=== PATIENT | female | born 1970 | race American Indian/Alaskan Native ===

== ENCOUNTER 2019-03-31 08:51 | Observation (INO) | payer MEDICAID, OTHER ==
[~2019-03-31 08:51] MED LIST: ceFAZolin/Water 2 GM/20 ML 2 GM/20 ML SYRINGE IV NR
[2019-03-31] MEDS ORDERED: fentaNYL 100 MCG/2 ML INJ IV PRN (10:09)
--- NOTE | 2019-03-31 10:13 | Anesthesia Day of Surgery ---
Anesthesia Day of Surgery - Day of Surgery Patient Examined: Yes Patient H&P Reviewed: Yes Patient is NPO: Yes
--- NOTE | 2019-03-31 10:13 | Anesthesia Consultation ---
Anesthesia Consult and Med Hx Date of service: 03/31/19 - Airway Anesthetic Teeth Evaluation: Good ROM Head & Neck: Adequate Mental/Hyoid Distance: Adequate Mallampati Class: Class II Intubation Access Assessment: Probably Good - Pulmonary Exam CTA: Yes - Cardiac Exam Cardiac Exam: RRR - Pre-Operative Health Status ASA Pre-Surgery Classification: ASA2 Proposed Anesthetic Plan: General Nerve Block: PEC - Pulmonary Hx Smoking: Yes (former smoker quit 2 yrs) Hx Respiratory Symptoms: No Hx Sleep Apnea: No (patient thinks she has ERIN but has never had sleep study) - Cardiovascular System Hx Hypertension: Yes Hx Heart Attack/AMI: No Hx Cardia Arrhythmia: No - Central Nervous System Hx Neuromuscular Disorder: No (peripheral neuropathy) CVA: No Hx Psychiatric Problems: Yes (depression) - Gastrointestinal Hx Gastroesophageal Reflux Disease: No - Endocrine Hx Renal Disease: No Hx Liver Disease: No Hx Insulin Dependent Diabetes: No Hx Non-Insulin Dependent Diabetes: No Hx Thyroid Disease: No - Other Systems Hx Cancer: Yes (Breast Ca) Hx Obesity: Yes (BMI 34) - Additional Comments Anesthesia Medical History Comments: No hx anesthetic complications.
[2019-03-31] MEDS ORDERED: BUPIVACAINE-EPINEPHRINE/PF 0.5%-1:200,000 (30 ML) VIAL INFILTRATI ONE (10:43)
[2019-03-31] MEDS ORDERED: MIDAZOLAM 2 MG/2 ML INJ IV NR (11:00)
[2019-03-31] MEDS ORDERED: GABAPENTIN 300 MG CAP PO NR (11:00)
[2019-03-31] MEDS ORDERED: CELECOXIB 200 MG CAP PO NR (11:00)
[2019-03-31] MEDS ORDERED: fentaNYL 100 MCG/2 ML INJ IV ONE (11:00)
[2019-03-31] MEDS ORDERED: MAGNESIUM OXIDE 400 MG TAB PO ONE (11:00)
[2019-03-31] MEDS ORDERED: LACTATED RINGERS 1,000 ML IV SCH ×2 (11:00→19:00)
[2019-03-31] MEDS ORDERED: ceFAZolin 1 GM VIAL ONE (12:34)
[2019-03-31] MEDS ORDERED: GENTAMICIN 40 MG/ML VIAL 2 ML ONE (12:34)
[2019-03-31] MEDS ORDERED: BACITRACIN 50,000 UNIT VIAL ONE (12:35)
[2019-03-31] MEDS ORDERED: SODIUM CHLORIDE P/F VIAL 10 ML 10 ML ONE (12:35)
[2019-03-31] MEDS ORDERED: SODIUM CHLORIDE 0.9% 1000 ML 1,000 ML ONE (12:36)
[2019-03-31] MEDS ORDERED: METHYLENE BLUE 50 MG/10 ML AMP ONE (12:36)
[2019-03-31] MEDS ORDERED: ROCURONIUM 50 MG/5 ML INJ IV ONE (13:23)
[2019-03-31] MEDS ORDERED: propofoL 200 MG/20 ML VIAL IV ONE (13:24)
[2019-03-31] MEDS ORDERED: fentaNYL 100 MCG/2 ML INJ ONE ×2 (13:24→19:41)
[2019-03-31] MEDS ORDERED: MIDAZOLAM 2 MG/2 ML INJ ONE (13:24)
[2019-03-31] MEDS ORDERED: LIDOCAINE MPF (2%) 20 MG/1 ML VIAL 5 ML ONE (13:26)
[2019-03-31] MEDS ORDERED: SUCCINYLCHOLINE CHLORIDE 200 MG/10 ML INJ MDV ONE (13:41)
[2019-03-31] MEDS ORDERED: WATER FOR IRRIG STERILE 1,500 ML BOTTLE IR ONE (14:44)
[2019-03-31] MEDS ORDERED: HYDROmorphone 1 MG/1 ML INJ ONE ×2 (15:00→20:09)
[2019-03-31] MEDS ORDERED: ceFAZolin 1 GM VIAL IV ONE (15:14)
[2019-03-31] MEDS ORDERED: BACITRACIN 50,000 UNIT VIAL IR ONE (15:15)
[2019-03-31] MEDS ORDERED: METHYLENE BLUE 50 MG/10 ML AMP IRRIGATION ONE (15:15)
[2019-03-31] MEDS ORDERED: SODIUM CHLORIDE 0.9% IRR 1,500 ML BOTTLE IR ONE (15:17)
[2019-03-31] MEDS ORDERED: LACTATED RINGERS 1,000 ML ONE (17:30)
[2019-03-31] MEDS ORDERED: METOCLOPRAMIDE 10 MG TAB PO PRN (18:36)
[2019-03-31] MEDS ORDERED: diphenhydrAMINE 25 MG CAP PO PRN (18:36)
[2019-03-31] MEDS ORDERED: ACETAMINOPHEN 325 MG TAB PO PRN (18:36)
[2019-03-31] MEDS ORDERED: ONDANSETRON 4 MG/2 ML INJ IV PRN (18:36)
--- NOTE | 2019-03-31 18:36 | Operative Report ---
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 Clay Dry Press Mixer Operator: Dr. Soto Anesthesia: Gen. Findings: Right breast clip present within right total mastectomy. 3 sentinel lymph nodes identified and negative for malignancy on frozen section of pathology. Clips present within right mastectomy. Complications: None Drains: Per plastic surgery Estimated blood loss: 120 cc Disposition: Plastic surgery proceeded with bilateral implant placement of bilateral tissue expanders Indications for operative procedure: This is a 48-year-old lady with stage II multicentric right breast cancer of the upper outer quadrant, IDCA grade 3 [id number]. She completed neoadjuvant chemotherapy and recommendations were to proceed with a bilateral mastectomy given positive BRCA1 gene mutation and right SLNB with possible ALND. She wished to proceed with a bilateral tissue expanders in conjunction with plastic surgery. She wished to proceed with the above procedure. Procedure in detail: The patient was taken to the operating room and was placed supine. Gen. anesthesia was administered. The right nipple was injected with radioisotope and 1 cc of methylene blue. Bilateral chest and axillas were prepped and draped in the normal sterile operative fashion. Timeout was performed. Typical mastectomy incision markings were made. Attention was taken toward the left breast first. First began raising of the superior flap to the level of the clavicle superiorly and posteriorly to the pectoralis muscle (medial superior flap to level of port given prior infection). Followed by raising of the medial flap to the level of the sternum and posteriorly to the pectoralis muscle. Followed by raising of the lateral flap to the level of the latissimus dorsi muscle and taken down posteriorly. Followed by raising of the inferior flap to the level of the inframammary fold taken posterior to the pectoralis muscle. The mastectomy/breast was removed from the pectoralis muscle without incident. The specimen was appropriately marked and sent to pathology. Hemostasis was obtained. Attention was taken towards the right breast. A gamma probe was inserted into the axilla to identify the sentinel lymph node location with uptake noted. Skin markings were made. A skin incision was made with a 10 blade knife and dissection taken down to the subcutaneous tissues. First began raising of the superior flap to the level of the clavicle superiorly (right port was identified and unharmed with medial mid dissection not taken to clavicle given port present) and posteriorly to the pectoralis muscle. Followed by raising of the medial flap to the level of the sternum and posteriorly to the pectoralis muscle. Followed by raising of the lateral flap to the level of the latissimus dorsi muscle and taken down posteriorly. The gamma probe was inserted into the axilla, the axillary fascia was opened and 3 axillary lymph nodes were identified that were dissected free and sent to pathology. Patient with probable positive axillary lymph node prior to chemotherapy as noted on PET prior to starting chemotherapy. Axillary lymph nodes were sent to pathology with findings negative for malignancy noted on frozen section and probable findings of reactive cells versus granuloma changes. Then proceeded with raising of the inferior flap to the level of the inframammary fold taken posterior to the pectoralis muscle. The mastectomy/breast was removed from the pectoralis muscle without incident. The specimen was appropriately marked and sent to radiology with findings of breast clips present and sent to pathology. Hemostasis was obtained. The chest wall was irrigated and suctioned. Plastic surgery then proceeded with placement of bilateral tissue expanders.
[2019-03-31] MEDS ORDERED: MORPHINE 2 MG/1 ML INJ IV PRN (18:38)
[2019-03-31] MEDS ORDERED: ONDANSETRON 4 MG/2 ML INJ IV ONE (20:00)
[2019-03-31] MEDS: HYDROmorphone 1 MG/1 ML INJ IV PRN ×3 (20:09→20:29)
--- NOTE | 2019-03-31 20:49 | Operative Report ---
PREOPERATIVE DIAGNOSIS: Right-sided breast cancer. POSTOPERATIVE DIAGNOSIS: Right-sided breast cancer. PROCEDURE: 1. Bilateral breast reconstruction using tissue expanders. 2. Bilateral breast reconstruction using adjacent tissue transfer 225 square cm each side for a total of 450 square cm. 3. Application of BIRGIT negative pressure wound VAC device to bilateral breasts for postoperative wound healing. SURGEON: Dr. Lauro Leiva. RATTLE LEAK AND SQUEAK REPAIRER: None. ANESTHESIA: General. OPERATIVE INDICATIONS: A 48-year-old female with a history of breast cancer, was referred to me for breast reconstructive options. We decided on a tissue cleaning specialist implant based reconstruction. Due to her large breast and ptosis, we were able to utilize the inferior dermal pedicle in order to create a prepectoral reconstruction with a support of the inframammary fold and lower pole coverage. Risks and benefits of surgery were discussed with the patient, she agreed. OPERATIVE DETAILS: The patient was brought to the operating room by Dr. Barreto and she began her operation. Her portion of the operation will be dictated separately. I came into the room after the patient was under anesthesia. She received preoperative antibiotics and had undergone one sided mastectomy and Dr. Barreto was completing the other side. I measured her base diameter and then picked an appropriate implant. We used a [employer] Artoura ultra high profile 700 mL implants on the left, the serial number is [id number], on the right, serial number [id number]. We took the air of the expanders and then added saline. At the end of the case, we had 150 mL on the right side, 250 mL on the left due to the fact that there was less skin available on the right side for closure. Once hemostasis was achieved and we irrigated out the pockets. We went ahead and took the cleaning specialist, secured it to the chest wall using 2-0 PDS and the suture tabs and then we deepithelialized on the inferior based dermal pedicle and then made an additional incisions to rotate and advance a 15 x 15 square cm dermal pedicle from inferior upto superior to sling the implant laterally and inferiorly. These were secured with 2-0 PDS spanning sutures. Same thing was performed on the other side as well. We then placed 15 and 19-[place]awk round Terell drains. We irrigated, achieved hemostasis again and then began with closure. We closed with 2-0 Vicryl for the deeper alignment and then 3-0 Monocryl deep dermals and then 3-0 Monocryl running subcuticular for the vertical limb and a 3-0 Monocryl running subcuticular barbed suture for the inframammary incision closure. We then applied BIRGIT negative pressure wound VAC device to both breasts for postoperative wound healing. The drains were dressed with Biopatches and Tegaderms. The patient was placed into a binder. She tolerated the procedure well, was awakened from general anesthesia, transferred to PACU in stable condition. ESTIMATED BLOOD LOSS: For my portion less than 50 mL. COMPLICATIONS: None. SPECIMENS: None. JOB# [id number] JAUN/KHURRAM
--- NOTE | 2019-03-31 20:54 | Post Anesthesia Evaluation ---
- Post Anesthesia Evaluation Patient Participated: Yes Airway Patent: Yes Stable Respiratory Function: Yes Nausea/Vomiting: No Temp > 96.8F: Yes Pain Manageable: Yes Adequeate Hydration: Yes Anesthesia Complications: No
[2019-03-31] MEDS ORDERED: DOCUSATE SODIUM 100 MG CAP PO SCH (22:00)
[2019-04-01] MEDS: oxyCODONE /ACETAMINOPHEN 5-325MG TAB PO PRN ×3 (00:52→12:50)
--- NOTE | 2019-04-01 05:22 | Discharge Summary ---
Providers - Providers Date of Admission: 03/31/19 18:36 Date of discharge: 04/01/19 Attending physician: KORINA VUONG Hospitalization Reason for admission: pain control Condition: Good Procedures: bilateral mastectomies and hair or beauty salon assistant reconstruction Hospital course: pain controlled, ambulating, drain teaching. Disposition: - TO HOME OR SELFCARE Core Measure Documentation - Palliative Care Palliative Care/ Comfort Measures: Not Applicable - Core Measures Any of the following diagnoses?: none - VTE Discharge Requirements Deep Vein Thrombosis/Pulmonary Embolism Present on Admission: No Exam - Physical Exam Narrative exam: incisions c/d/i. no signs of bleeding or infection. drains serosang. BIRGIT dry. - Constitutional Vitals: Temp Pulse Resp BP Pulse Ox 97.7 F 89 18 115/71 97 04/01/19 00:50 04/01/19 00:50 04/01/19 00:50 04/01/19 00:50 04/01/19 00:50 Plan Activity: other (no lifting, exercise, or raising arms above shoulder level) Weight Bearing Status: Full Weight Bearing Diet: regular Wound: other (BIRGIT to remain on for 1 week. Do not remove or get wet. No showers) Follow up with: DR JOSE [Other] - 7 Days ANH JACINTO MD [Staff Physician] - 7 Days KORINA VUONG MD [Staff Physician] - 14 Days
--- NOTE | 2019-04-01 08:19 | XRay Report ---
SPECIMEN RADIOGRAPH RIGHT BREAST INDICATION: Right breast cancer at 2 sites. COMPARISON: 03/04/2019 mammogram FINDINGS: 2 localizer clips are identified within what appears to be a whole breast specimen IMPRESSION: 1. Excision of 2 known cancers. Signer Name: Bandar Hurtado MD Signed: 04/01/2019 8:15 AM Workstation Name: [id number]
[2019-04-01 12:47] VITALS: BP 129/67
== END 2019-04-01 13:45 | disposition home or self-care (01) ==
LOC: OR 08:51 → OB 18:36
PROVIDERS: ADMIT Plastic Surgery; ATTEND Plastic Surgery
DX: C50.411 Malignant neoplasm of upper-outer quadrant of right female breast (principal)
CPT/HCPCS: 19303; 36415; 38525; 38792; 64450; 76098; 78800; 84703; 88307; 88312; 88331; 88341; 88342; 96374; 96375; A9541; C1789; G0378; J0330; J0690; J1170; J1580; J2250; J2405; J2704; J3010; J7030; J7120; Q9968; 88309; 88333